=== PATIENT | male | born 1985 | race Two or more races ===

== ENCOUNTER 2023-05-04 11:47 | Emergency (ER) | payer SELFPAY ==
[2023-05-04 12:18] VITALS: BP 160/92; PULSE 95; RESP 18; TEMP 36.8; O2SAT 95; BMI 27.1
[2023-05-04 12:58] LABS: Internal Control Within Normal Limits; Strep A Antigen Screen Negative
[2023-05-04 12:59] LABS: Influenza Virus A Antigen Negative; Influenza Virus B Antigen Negative; Internal Control Within Normal Limits; SARS-CoV-2 Ag NEGATIVE (NEGATIVE)
--- NOTE | 2023-05-04 13:14 | ED_ITS ---
HPI - URI/Sore Throat General Chief Complaint: Upper Respiratory Infection Stated Complaint: NAUSEA AND BODYACHES Time Seen by Provider: 05/04/23 12:33 Source: patient Limitations: no limitations History of Present Illness HPI Narrative: The patient presented to us with upper respiratory tract symptoms of runny nose as well as body aches he denies any other complaint but he has been exposed to some contact to have viral symptoms and he is coming to us because he is to be diagnosed and he could not go to work today Related Data Home Medications Medication Instructions Recorded Confirmed buprenorphine 8 mg-naloxone 2 mg 2 film sublingual DAILY 05/04/23 05/04/23 sublingual film (Suboxone) Allergies Allergy/AdvReac Type Severity Reaction Status Date / Time No Known Drug Allergies Allergy Verified 05/04/23 12:17 Review of Systems ROS Status of ROS 10 or more systems reviewed and unremark able except as noted in history and below [facility] Social History Smoking status: Current every day smoker Exam Narrative Exam Narrative: Nurses notes and vital signs reviewed and patient is not hypoxic. General: Well-appearing and in no apparent distress. Skin: Warm, dry, no pallor noted. No rash. Head: Normocephalic, atraumatic. Neck: Supple, non-tender. Eye: Pupils are equal, round and EOMI. No scleral icterus. Ears, Nose, Mouth, and Throat: TM are clear, no nasal mucosal hypertrophy. Oral mucosa is moist, no posterior oropharynx erythema, uvula is mid-line Cardiovascular: Regular Rate and Rhythm without murmur, gallop or rub. Respiratory: No accessory muscle use or respiratory distress. Lungs are clear to auscultation, no wheezing, rales or rhonchi Chest Wall: no tenderness Back: No midline thoracic or lumbar vertebral tenderness. No CVA tenderness Musculoskeletal: normal ROM, no calf or popliteal tenderness, no lower extremity edema/swelling GI: Abdomen is soft, non-distended. Normal bowel sounds. No masses appreciated. No tenderness to palpation. No rebound, guarding, or rigidity noted. Neurological: A&O x4. No cranial nerve dysfunction observed. No truncal ataxia. Moves all extremities. Sensation intact. Psychiatric: Cooperative and interactive. Normal mood and affect. Constitutional Vital Signs, click to edit/add: Last Vital Signs Temp 98.2 F 05/04/23 12:18 Pulse 95 H 05/04/23 12:18 Resp 18 05/04/23 12:18 BP 160/92 H 05/04/23 12:18 Pulse Ox 95 05/04/23 12:18 O2 Del Method Room Air 05/04/23 12:18 Course Vital Signs Vital signs: Vital Signs Temperature 98.2 F 05/04/23 12:18 Pulse Rate 95 H 05/04/23 12:18 Respiratory Rate 18 05/04/23 12:18 Blood Pressure 160/92 H 05/04/23 12:18 Pulse Oximetry 95 05/04/23 12:18 Oxygen Delivery Method Room Air 05/04/23 12:18 Temperature 98.2 F 05/04/23 12:18 Pulse Rate 95 H 05/04/23 12:18 Respiratory Rate 18 05/04/23 12:18 Blood Pressure 160/92 H 05/04/23 12:18 Pulse Oximetry 95 05/04/23 12:18 Oxygen Delivery Method Room Air 05/04/23 12:18 MDM - URI/Sore Throat MDM Narrative Medical decision making narrative: COVID and flu test are negative the patient discharged home with supportive care The patient is to follow up with primary care physician in next 2-3 days or to return to the emergency department should any of the signs or symptoms worsen or new symptoms develop. The patient agrees with the following Diagnosis and Treatment plan and the patient will be discharged home. Lab Data Labs: Lab Results 05/04/23 Range/Units 12:23 Influenza Type A Ag Negative Influenza Type B Ag Negative SARS-CoV-2 Ag (CV2AG) Negative (NEGATIVE) Streptococcus Screen Negative Discharge Plan Discharge Chief Complaint: Upper Respiratory Infection Clinical Impression: Upper respiratory infection Qualifiers: URI type: unspecified URI Qualified Code(s): J06.9 - Acute upper respiratory infection, unspecified Patient Disposition: Home, Self-Care Time of Disposition Decision: 13:13 Condition: Good Prescriptions / Home Meds: No Action buprenorphine-naloxone [Suboxone] 8-2 mg film 2 film sublingual DAILY Rx Instructions: place 1 strip/tab under (each) side of tongue Instructions: Upper Respiratory Infection (ED) Stand Alone Forms: Portal Instructions
== END 2023-05-04 13:19 | disposition home or self-care (01) ==
LOC: ER 13:19
PROVIDERS: Emergency Provider Emergency Medicine
DX: J06.9 Acute upper respiratory infection, unspecified (principal); Z20.822 Contact with and (suspected) exposure to COVID-19; F17.210 Nicotine dependence, cigarettes, uncomplicated; Z79.899 Other long term (current) drug therapy
CPT/HCPCS: 87070; 87804; 87811; 87880; 99283